=== PATIENT | male | born 1970 | race Caucasian/White ===

== ENCOUNTER → 2022-04-15 | Outpatient (CLI) | payer MEDICARE, OTHER ==
[~2022-04-15] MED LIST: ALLO100T OR; DILT300C2 OR; PHOSLO667 MG OR; SIMV10TA2 OR; TUMS500C OR; VANCOMYCIN IV; ZEMPLAR IV; [UNRECOGNIZED DRUG - CODE] PO; nephro-vite PO
== END ==
LOC: M WUC 13:31
PROVIDERS: ATTEND Physician Assistant
DX: M54.12 Radiculopathy, cervical region (principal)

== ENCOUNTER → 2022-06-22 | Outpatient (REF) | payer OTHER | LOC: M LAB REF 15:41 | PROVIDERS: ATTEND Surgery | DX: D17.21 Benign lipomatous neoplasm of skin and subcutaneous tissue of right arm (principal) ==